=== PATIENT | female | born 2000 | race Two or more races ===

== ENCOUNTER 2021-12-22 15:21 | Emergency (ER) | payer SELFPAY ==
[~2021-12-22] VITALS: Ht 160 cm; Wt 78.0 kg
[2021-12-22 15:39] VITALS: BP 120/75
[2021-12-22] MEDS ORDERED: IV NORMAL SALINE 1000ML BAG 1,000 ML IV ONE (15:45)
[2021-12-22] MEDS ORDERED: ONDANSETRON PF 4 MG/2 ML VIAL. IVP ONE (15:45)
[2021-12-22 15:46] LABS: BASO # 0.1 x10^3/uL (0.0-0.2); BASO % 1 % (0-3); EOS # 0.1 x10^3/uL (0.0-0.7); EOS % 1 % (0-3); HEMATOCRIT 42.1 % (36.0-47.0); HEMOGLOBIN 14.2 g/dL (12.0-15.5); LYMPH # 1.5 x10^3/uL (1.0-4.8); LYMPH % 14 % (24-48); MEAN CORPUSCULAR HEMOGLOBIN 27 pg (25-35); MEAN CORPUSCULAR HGB CONC 34 g/dL (31-37); MEAN CORPUSCULAR VOLUME 81 fL (79-100); MONO # 0.6 x10^3/uL (0.0-1.1); MONO % 5 % (0-9); NEUT # 9.1 x10^3/uL (1.8-7.7); NEUT % 80 % (31-73); PLATELET COUNT 323 x10^3/uL (140-400); RED BLOOD COUNT 5.19 x10^6/uL (3.50-5.40); RED CELL DISTRIBUTION WIDTH 12.4 % (11.5-14.5); WHITE BLOOD COUNT 11.4 x10^3/uL (4.0-11.0)
[2021-12-22 16:04] LABS: CREATININE 0.9 mg/dL (0.6-1.0); GFR 78.3; POTASSIUM 3.5 mmol/L (3.5-5.1)
[2021-12-22 16:10] LABS: ALBUMIN 3.8 g/dL (3.4-5.0); ALBUMIN/GLOBULIN RATIO 0.8 (1.0-1.7); TOTAL BILIRUBIN 0.5 mg/dL (0.2-1.0); TOTAL PROTEIN 8.3 g/dL (6.4-8.2)
[2021-12-22 16:54] LABS: BACTERIA,URINE MANY /HPF (0-FEW); WBC,URINE TNTC /HPF (0-4)
[2021-12-22] MEDS ORDERED: IV DEXTROSE 5%-LACT RINGERS 1,000 ML IV ONE (17:15)
[2021-12-22] MEDS ORDERED: ONDA4TAB12 PO (17:55)
[2021-12-22] MEDS ORDERED: NITR100C62 PO (17:57)
--- NOTE | 2021-12-22 17:57 | PHYS DOC ---
Past Medical History Past Medical History: No Pertinent History Past Surgical History: Other Additional Past Surgical Histo: ear surgery Smoking Status: Never Smoker Alcohol Use: Occasionally General Adult EDM: Chief Complaint: NAUSEA/VOMITING/DIARRHEA HPI: HPI: Patient is a 21-year-old female who presents today with nausea and vomiting. Patient states her symptoms started last Thursday, she states that she took 2 test over the last week and both of them is turned up positive. Patient denies chest pain, abdominal pain, shortness of breath, diarrhea, vaginal bleeding or vaginal discharge or fever and chills. Patient states her last normal menstrual period was November 05, 2021. Patient does not have a primary care physician and has never seen an FEE CLERK in the past. Review of Systems: Review of Systems: Constitutional: Denies fever or chills. [] Eyes: Denies change in visual acuity. [] HENT: Denies nasal congestion or sore throat. [] Respiratory: Denies cough or shortness of breath. [] Cardiovascular: Denies chest pain or edema. [] GI: Nausea and vomiting denies abdominal pain, bloody stools or diarrhea. [] : Denies dysuria. [] Musculoskeletal: Denies back pain or joint pain. [] Integument: Denies rash. [] Neurologic: Denies headache, focal weakness or sensory changes. [] Endocrine: Denies polyuria or polydipsia. [] Lymphatic: Denies swollen glands. [] Psychiatric: Denies depression or anxiety. [] Heart Score: C/O Chest Pain: No Risk Factors: Risk Factors: DM, Current or recent (<one month) smoker, HTN, HLP, family history of CAD, obesity. Risk Scores: Score 0 - 3: 2.5% MACE over next 6 weeks - Discharge Home Score 4 - 6: 20.3% MACE over next 6 weeks - Admit for Clinical Observation Score 7 - 10: 72.7% MACE over next 6 weeks - Early Invasive Strategies Current Medications: Current Medications Medications (Trade) Dose Ordered Sig/Desi Start Time Stop Time Status Last Admin Dose Admin Dextrose/Lactated Ringer's 1,000 ml @ 999 mls/hr 1X ONCE 12/22/21 17:15 12/22/21 18:15 12/22/21 17:15 999 MLS/HR Ondansetron HCl (Zofran) 4 mg 1X ONCE 12/22/21 15:45 12/22/21 16:57 DC 12/22/21 15:46 4 MG Sodium Chloride 1,000 ml @ 999 mls/hr 1X ONCE 12/22/21 15:45 12/22/21 16:57 DC 12/22/21 15:46 999 MLS/HR Allergies: Allergies: Allergies Coded Allergies Type Severity Reaction Last Updated Verified No Known Drug Allergies 12/22/21 No Physical Exam: PE: Constitutional: Well developed, well nourished, no acute distress, non-toxic appearance. [] HENT: Normocephalic, atraumatic, bilateral external ears normal, oropharynx moist, no oral exudates, nose normal. [] Eyes: PERRLA, EOMI, conjunctiva normal, no discharge. [] Neck: Normal range of motion, no tenderness, supple, no stridor. [] Cardiovascular:Heart rate regular rhythm, no murmur [] Lungs & Thorax: Bilateral breath sounds clear to auscultation [] Abdomen: Bowel sounds normal, soft, no tenderness, no masses, no pulsatile masses. [] Skin: Warm, dry, no erythema, no rash. [] Back: No tenderness, no CVA tenderness. [] Extremities: No tenderness, no cyanosis, no clubbing, ROM intact, no edema. [] Neurologic: Alert and oriented X 3, normal motor function, normal sensory function, no focal deficits noted. [] Psychologic: Affect normal, judgement normal, mood normal. [] Current Patient Data: Labs: Laboratory Tests Test 12/22/21 15:30 12/22/21 16:23 12/22/21 16:36 White Blood Count 11.4 x10^3/uL (4.0-11.0) H Red Blood Count 5.19 x10^6/uL (3.50-5.40) Hemoglobin 14.2 g/dL (12.0-15.5) Hematocrit 42.1 % (36.0-47.0) Mean Corpuscular Volume 81 fL (79-100) Mean Corpuscular Hemoglobin 27 pg (25-35) Mean Corpuscular Hemoglobin Concent 34 g/dL (31-37) Red Cell Distribution Width 12.4 % (11.5-14.5) Platelet Count 323 x10^3/uL (140-400) Neutrophils (%) (Auto) 80 % (31-73) H Lymphocytes (%) (Auto) 14 % (24-48) L Monocytes (%) (Auto) 5 % (0-9) Eosinophils (%) (Auto) 1 % (0-3) Basophils (%) (Auto) 1 % (0-3) Neutrophils # (Auto) 9.1 x10^3/uL (1.8-7.7) H Lymphocytes # (Auto) 1.5 x10^3/uL (1.0-4.8) Monocytes # (Auto) 0.6 x10^3/uL (0.0-1.1) Eosinophils # (Auto) 0.1 x10^3/uL (0.0-0.7) Basophils # (Auto) 0.1 x10^3/uL (0.0-0.2) Maternal Serum HCG Beta Subunit 62922 mIU/mL (0-5) H Sodium Level 139 mmol/L (136-145) Potassium Level 3.5 mmol/L (3.5-5.1) Chloride Level 102 mmol/L (98-107) Carbon Dioxide Level 24 mmol/L (21-32) Anion Gap 13 (6-14) Blood Urea Nitrogen 9 mg/dL (7-20) Creatinine 0.9 mg/dL (0.6-1.0) Estimated GFR (Cockcroft-Gault) 78.3 BUN/Creatinine Ratio 10 (6-20) Glucose Level 93 mg/dL (70-99) Calcium Level 9.0 mg/dL (8.5-10.1) Total Bilirubin 0.5 mg/dL (0.2-1.0) Aspartate Amino Transferase (AST) 22 U/L (15-37) Alanine Aminotransferase (ALT) 22 U/L (14-59) Alkaline Phosphatase 80 U/L (46-116) Total Protein 8.3 g/dL (6.4-8.2) H Albumin 3.8 g/dL (3.4-5.0) Albumin/Globulin Ratio 0.8 (1.0-1.7) L Lipase 48 U/L (73-393) L Urine Collection Type Unknown Urine Color (Auto) Yellow Urine Turbidity Hazy Urine pH (Auto) 5.5 (<5.0-8.0) Urine Specific [place] 1.033 (1.000-1.030) Urine Protein (Auto) 30 mg/dL (Negative) Urine Glucose (Auto)(UA) Negative mg/dL (Negative) Urine Ketones (Auto) 150 mg/dL (Negative) Urine Blood (Auto) Negative (Negative) Urine Nitrite Negative (Negative) Urine Bilirubin (Auto) Negative (Negative) Urine Urobilinogen (Auto) Normal mg/dL (Normal) Urine Leukocyte Esterase (Auto) Large (Negative) Urine RBC 3-5 /HPF (0-2) Urine WBC Tntc /HPF (0-4) Urine Squamous Epithelial Cells Mod /LPF Urine Bacteria Many /HPF (0-FEW) Urine Mucus Mod /LPF POC Urine HCG, Qualitative Hcg positive (Negative) Laboratory Tests 12/22/21 15:30 Laboratory Tests 12/22/21 15:30 Vital Signs: Vital Signs Date Time Temp Pulse Resp B/P (MAP) Pulse Ox O2 Delivery O2 Flow Rate FiO2 12/22/21 18:01 98.4 85 18 116/68 (84) 100 98.4 12/22/21 15:39 98.8 84 18 120/75 (90) 98 98.8 Vital Signs Date Time Temp Pulse Resp B/P (MAP) Pulse Ox O2 Delivery O2 Flow Rate FiO2 12/22/21 15:39 98.8 84 18 120/75 (90) 98 98.8 EKG: EKG: [] Radiology/Procedures: Radiology/Procedures: [] Course & Med Decision Making: Course & Med Decision Making Pertinent Labs and Imaging studies reviewed. (See chart for details) [id number] I reviewed laboratory results with patient and her family member at the bedside and informed her that her test was normal as well as her beta hCG levels did show that she was approximately 5 weeks , patient was also informed that her urine was negative for any acute processes as well as her lab tests were all within normal limits. Patient is instructed that her vo miting could be due to early symptoms and that she should try to eat small frequent meals throughout the day avoid caffeine, alcohol and caffeine which can irritate the stomach and cause nausea as well. Patient will be given a list of resource clinics and also FEE CLERK's number to call and make a follow-up appointment for evaluation and management of her . Patient will be given a prescription for Zofran for her nausea and it was also noted that the patient has a urinary tract infection she will be given Macrobid to be taken twice daily for 7 days for that. Patient verbalized understanding of this and is agreeable with the plan of care Adriana Disclaimer: Adriana Disclaimer: This electronic medical record was generated, in whole or in part, using a voice recognition dictation system. Departure Departure Impression: Primary Impression: Nausea and vomiting during prior to 22 weeks gestation Additional Impression: UTI (urinary tract infection) during Qualified Codes: O23.41 - Unspecified infection of urinary tract in , first trimester Disposition: HOME / SELF CARE / HOMELESS Condition: STABLE Referrals: AKASH MARTINEZ CNM, GINA M MD Patient Instructions: ABCs of , Nausea and Vomiting, - First Trimester, - Urinary Tract Infection Additional Instructions: Zofran take 1 tablet every 6-8 hours as needed for nausea, take with a small dri nk of water weight 20 to 30 minutes before trying any clear liquids. Use with caution this may cause constipation Macrobid 100 mg take 1 tablet twice daily for 7 full days for urinary tract infection Eat small frequent meals throughout the day, increase by mouth fluids avoiding caffeine and alcohol Follow-up with your primary care physician, one of the listed clinics in your discharge instructions or with the doctors in the referral section for further evaluation and management of your . [facility] [address] [place] [address] [facility] [address] [place] [address] [facility] [address] [facility] [place] [address] [facility] [address] [place] [address] [facility] [address] [place] [address] [facility] [address] [place] [address] [facility] [place] [address] [place] [address] [facility] [address] [place] [address] [facility] [address] [place] [address] [facility] [address] [place] [address] Scripts Nitrofurantoin Monohyd/M-Cryst (MACROBID 100 MG CAPSULE) 100 Mg Capsule 1 CAP PO BID for 7 Days, #14 CAP 0 Refills Prov: RAO GALVIN SENIOR [employer] D[employer] 12/22/21 Ondansetron (ONDANSETRON ODT) 4 Mg Tab.rapdis 1 TAB PO PRN Q6-8HRS, #16 TAB Prov: RAO GALVIN SENIOR SQL DBA 12/22/21 RAO GALVIN SENIOR SQL DBA December 22, 2021 17:57
== END 2021-12-22 18:23 | disposition home or self-care (01) ==
LOC: ER 15:21
DX: O23.41 Unspecified infection of urinary tract in pregnancy, first trimester (principal); Z3A.01 Less than 8 weeks gestation of pregnancy
CPT/HCPCS: 36415; 80053; 81001; 81025; 83690; 84702; 85025; 87086; 96361; 96365; 96375; 99284; J2405; J7030; J7121